=== PATIENT | male | born 1975 | race Caucasian/White ===

== ENCOUNTER 2018-08-20 08:10 | Observation (INO) ==
[2018-08-20] MEDS ORDERED: ONDANSETRON 4 MG/2 ML VIAL IV ONE (08:16)
[2018-08-20] MEDS ORDERED: 0.9 % SODIUM CHLORIDE 1,000 ML IV ONE ×3 (08:22→12:11)
--- NOTE | 2018-08-20 08:42 | Emergency Department Note ---
Overdose HPI - General Chief Complaint: Overdose Stated Complaint: Weak, took a lot of anxiety meds Time Seen by Provider: 08/20/18 08:33 Source: EMS Mode of arrival: EMS - History of Present Illness HPI Narrative: Dr. Silvio Nunes called me at 8:19 AM to report that this patient was being transported here. Apparently a family member learned of him taking up to [address] Nunes is concerned about this patient's long- standing history of substance abuse (alcohol) and other psych concerns, possible schizoaffective, etc. He is recommending trying to get patient into a long-term inpatient detox. He also recommends consulting with Dr. Bundy, addiction ologist, who has also seen patient in the past I believe. We also received a note that she wishes an update on this patient. Patient reports that he has fallen a few times last evening. He thinks he took the pills around 10:30 PM at least it was before midnight. He did not add any alcohol at this time. He believes he was going through withdrawals from alcohol and was taking these medicines to help alleviate that or to get a buzz. He reports that his heart rate was fast last evening. He also reports nausea and that he vomited 4 times this morning but was not sweaty. He did have some letitia mors. He reports now still being nauseated and sleepy. No previous suicide attempts with pills. He does admit to suicide attempt with excess alcohol with a blood level of 0.58 in the past. He feels numb all over. He reports seeing some hallucination or abnormalities such as looking at a white wall and seeing some yellow in front of it and lights that look like footballs. Please officer reports that he has a history of hallucinations and shooting up the apartment where he lives. Patient reports that he currently lives with his mother in her home. He is accepted at or headed towards living in a residential house, the [facility]. REVIEW OF SYSTEMS: Denies fever, chills, sweats other than above. Denies chest pain, shortness of breath, diarrhea, hematochezia. He has some chronic constipation. He admits to some depression and posttraumatic stress disorders problems. - Related Data Home Medications Medication Instructions Recorded Confirmed vitamin B complex tablet 1 tab PO QDAY 05/14/17 08/16/18 naltrexone ER 380 mg intramuscular 380 mg IM QMONTH 08/11/18 08/16/18 suspension,extended release Previous Rx's Medication Instructions Recorded multivitamin tablet 1 tab PO QDAY #60 tab 12/31/17 thiamine HCl (vitamin B1) 100 mg 100 mg PO QDAY #90 tab 06/29/18 tablet bupropion HCl 100 mg tablet 100 mg PO QHS #90 tab 07/27/18 quetiapine 100 mg tablet 200 mg PO QHS #135 tab 07/27/18 baclofen 10 mg tablet 10 mg PO TID #30 tab 08/11/18 hydroxyzine HCl 50 mg tablet 50 mg PO QHS #90 tab 08/11/18 mirtazapine 15 mg tablet 15 mg PO QHS #14 tab 08/11/18 lamotrigine 25 mg tablet 25 mg PO BID #30 tab 08/16/18 metoprolol tartrate 25 mg tablet 25 mg PO BID #90 tab 08/16/18 Allergies Allergy/AdvReac Type Severity Reaction Status Date / Time disulfiram AdvReac Rash Verified 08/20/18 08:11 Past Medical History - Past Medical History [facility] Narrative: Medical History (Last Updated 08/20/18 @ 09:15 by Arben Em DO) Alcohol abuse (Chronic) Schizoaffective disorder (Suspected) Hypertension, essential (Chronic) Substance Abuse (Chronic) Alcohol intoxication with moderate or severe use disorder (Resolved) History of tobacco use (Chronic) Insomnia (Chronic) Depression (Chronic) Anxiety (Chronic) Post traumatic stress disorder (PTSD) (Chronic) Past Surgical History (Last Reviewed 07/30/18 @ 08:28 by Vianney Woodson LPN) No pertinent past surgical history (Chronic) Family History (Last Reviewed 07/30/18 @ 08:28 by Vianney Woodson LPN) Father Hypertension, essential Alcohol abuse Grandmother Hypertension, essential Alcohol abuse Mother Alcohol abuse Family/Other Alcohol abuse Family/Other Alcohol abuse Medical history: Reports: hypertension. Denies: DVT, pulmonary embolus Psychiatric history: Reports: anxiety, depression, PTSD. Denies: bipolar - Social History smoking status: Current every day smoker Physical Exam Limitations: altered mental status (Primarily sleepiness and some slowed response.) General appearance: alert (When spoken to but easily falls back asleep.), ap pears intoxicated, in no apparent distress, sleepy Head: atraumatic, normocephalic Eye: Present: PERRL, EOMI. Absent: scleral icterus, conjunctival injection ENT: normal oropharynx, mucous membranes dry Neck: Present: trachea midline. Absent: lymphadenopathy, thyromegaly Chest: Present: symmetric chest wall rise Respiratory: Present: normal lung sounds bilaterally. Absent: respiratory distress, wheezes, stridor, accessory muscle use, prolonged expiratory phase Cardiovascular: Present: regular rate, normal rhythm. Absent: systolic murmur, diastolic murmur Abdominal: Present: soft. Absent: distention, tenderness, guarding, rebound, rigidity, organomegaly, mass Extremities: Absent: pedal edema, pretibial edema, calf tenderness Back: Absent: tenderness Neurological: Present: alert, oriented X3 Psychiatric: Present: serious. Absent: depressed, agitated, anxious, homicidal ideation, suicidal ideation, tearful, poor eye contact Skin: Present: warm, dry Course Vital Signs Temperature 97.9 F 08/20/18 08:11 Pulse Rate 75 08/20/18 08:11 Respiratory Rate 20 08/20/18 08:11 Blood Pressure 166/112 08/20/18 08:11 Pulse Oximetry (%) 90 08/20/18 08:11 Temperature 97.9 F 08/20/18 08:11 Pulse Rate 75 08/20/18 08:52 Respiratory Rate 18 08/20/18 08:52 Blood Pressure 172/118 08/20/18 08:46 Pulse Oximetry (%) 94 08/20/18 08:52 Overdose - Lab Data Result diagrams: 08/20/18 08:43 08/20/18 08:43 Lab Results 08/20/18 Range/Units 08:43 WBC 5.9 (4.5-11.0) K/mcL RBC 4.55 (4.50-5.90) M/mcL Hgb 13.7 (13.5-16.5) g/dL Hct 41.3 (41.0-55.0) % MCV 90.8 (80.0-100.0) fL MCH 30.1 (26.0-34.0) pg MCHC 33.1 (31.0-36.0) g/dL RDW 17.5 H (11.5-14.5) % Plt Count 104 L (140-440) K/mcL MPV 8.1 (7.4-10.4) fL Gran % 66.1 (38.0-78.0) % Lymph % (Auto) 22.0 (15.5-49.0) % [place] % (Auto) 8.5 (1.0-12.0) % Eos % (Auto) 2.9 (0.0-7.0) % Baso % (Auto) 0.5 (0.0-2.0) % Gran # 3.9 (1.8-8.0) K/mcL Lymph # (Auto) 1.3 L (1.5-4.8) K/mcL [place] # (Auto) 0.5 (0.1-0.9) K/mcL Eos # (Auto) 0.2 (0.0-0.7) K/mcL Baso # (Auto) 0 (0.0-0.3) K/mcL Disposition Pt seen by USER EXPERIENCE DESIGNER/PA only: No Clinical Impression: Alcohol abuse, Hypertension, essential, Multiple falls Drug overdose Qualifiers: Encounter type: initial encounter Injury intent: undetermined intent Qualified Code(s): T50.904A - Poisoning by unspecified drugs, medicaments and biological substances, undetermined, initial encounter Summary: Patient arrived shortly before change in shift. Patient's care will be transferred to Dr. Liao for final disposition. Note that Poison Control was consulted, with recommendation to give a an amp of sodium bicarb if he has prolonged QT changes which are somewhat borderline. Dr. Liao and I briefly discussed this with conclusion to go ahead and give this amp of bicarb. Also they recommended benzodiazepines if needed to help with any seizure activity because of the excess of Wellbutrin. Because of his alcohol withdrawal considerations 1 mg of lorazepam also ordered; may need more than this. CT scan of the head was ordered because of patient's multiple falls and somewhat obtunded and uncertain accuracy of some of his statements or history. Disposition: Still a Patient Referrals: Silvio Silverio MD [Primary Care Provider] -
[2018-08-20] MEDS ORDERED: LORazepam 2 MG/ML VIAL IV ONE ×2 (09:00→11:00)
[2018-08-20] MEDS ORDERED: SODIUM BICARBONATE ADULT 50 MEQ/50 ML SYRINGE IV ONE (09:03)
[2018-08-20 09:10] LABS: Basophils # (Auto) 0 K/mcL (0.0-0.3); Basophils % (Auto) 0.5 % (0.0-2.0); Eosinophils # (Auto) 0.2 K/mcL (0.0-0.7); Eosinophils % (Auto) 2.9 % (0.0-7.0); Granulocytes % (Auto) 66.1 % (38.0-78.0); Hematocrit 41.3 % (41.0-55.0); Hemoglobin 13.7 g/dL (13.5-16.5); Lymphocytes # (Auto) 1.3 K/mcL (1.5-4.8); Mean Cell Volume 90.8 fL (80.0-100.0); Mean Corpuscular HGB Conc 33.1 g/dL (31.0-36.0); Mean Platelet Volume 8.1 fL (7.4-10.4); Monocytes # (Auto) 0.5 K/mcL (0.1-0.9); Monocytes % (Auto) 8.5 % (1.0-12.0); Platelet Count 104 K/mcL (140-440); RBC 4.55 M/mcL (4.50-5.90); Red Cell Distribution Width 17.5 % (11.5-14.5); WBC 5.9 K/mcL (4.5-11.0)
[2018-08-20] MEDS ORDERED: SODIUM BICARBONATE 50 MEQ/50 ML VIAL IV ONE (09:13)
[2018-08-20 09:29] LABS: Alcohol, Blood < 10.0 mg/dL (<10); Alcohol,Blood < 0.010 gm/dl (<0.010)
[2018-08-20 09:34] LABS: ALT/SGPT 50 U/l (0-40); AST/SGOT 41 U/l (0-37); Albumin 4.2 gm/dL (3.2-5.2); Albumin/Globulin Ratio 1.3 (1.0-2.3); Alkaline Phosphatase 86 U/L (39-117); Bilirubin,Total 0.6 mg/dL (0.0-1.0); Blood Urea Nitrogen 17 mg/dl (6-20); Calcium 8.9 mg/dl (8.6-10.4); Carbon Dioxide 23 mmol/L (22-30); Chloride 101 mmol/L (96-108); Globulin 3.2 gm/dL (2.2-3.7); Glomerular Filtration Rate 117; Glucose 136 mg/dL (70-105); Sodium 136 mmol/L (133-145)
--- NOTE | 2018-08-20 09:51 | Cat Scan Report ---
CLINICAL INFORMATION: Frequent falls. COMPARISON: None. TECHNIQUE: Axial noncontrast-enhanced images through the brain. Sagittal and coronal reformatted images FINDINGS: No acute intracranial hemorrhage. No subdural hematoma. There is no subarachnoid hemorrhage. Basilar cisterns are normal. No intra-axial hemorrhage. No focal intra-axial attenuation abnormalities. No localized mass effect. No midline shift. Brain volume is within normal limits. Brainstem and cerebellum are negative. There are no calvarial fractures. Temporal bones are negative. No basilar skull fracture. IMPRESSION: Negative noncontrast enhanced brain CT scan The exam was performed using radiation dose optimization techniques including, but not limited to, automated exposure control, adjustment of the mA and/or kV according to patient size and use of iterative reconstruction technique. Interpreted and Authenticated by: Jorje Sage 08/20/18
--- NOTE | 2018-08-20 10:16 | Emergency Department Note ---
Overdose HPI - General Chief Complaint: Overdose Stated Complaint: Weak, took a lot of anxiety meds Time Seen by Provider: 08/20/18 08:33 Source: EMS Mode of arrival: EMS Limitations: altered mental status (Primarily sleepiness and some slowed response.) - Related Data Home Medications Medication Instructions Recorded Confirmed vitamin B complex tablet 1 tab PO QDAY 05/14/17 08/16/18 naltrexone ER 380 mg intramuscular 380 mg IM QMONTH 08/11/18 08/16/18 suspension,extended release Previous Rx's Medication Instructions Recorded multivitamin tablet 1 tab PO QDAY #60 tab 12/31/17 thiamine HCl (vitamin B1) 100 mg 100 mg PO QDAY #90 tab 06/29/18 tablet bupropion HCl 100 mg tablet 100 mg PO QHS #90 tab 07/27/18 quetiapine 100 mg tablet 200 mg PO QHS #135 tab 07/27/18 baclofen 10 mg tablet 10 mg PO TID #30 tab 08/11/18 hydroxyzine HCl 50 mg tablet 50 mg PO QHS #90 tab 08/11/18 mirtazapine 15 mg tablet 15 mg PO QHS #14 tab 08/11/18 lamotrigine 25 mg tablet 25 mg PO BID #30 tab 08/16/18 metoprolol tartrate 25 mg tablet 25 mg PO BID #90 tab 08/16/18 Allergies Allergy/AdvReac Type Severity Reaction Status Date / Time disulfiram AdvReac Rash Verified 08/20/18 08:11 Past Medical History - Past Medical History Medical history: Reports: hypertension. Denies: DVT, pulmonary embolus Psychiatric history: Reports: anxiety, depression, PTSD. Denies: bipolar - Social History smoking status: Current every day smoker Physical Exam I reassessed this patient as he was now requiring oxygen since being checked out to me by Dr. Em. He is mildly diaphoretic but able to answer questions. Moist mucous membranes. Belly is mildly diffuse tender Limitations: altered mental status (Primarily sleepiness and some slowed response.) General appearance: alert (When spoken to but easily falls back asleep.), appears intoxicated, in no apparent distress, sleepy Course Vital Signs Temperature 97.9 F 08/20/18 08:11 Pulse Rate 75 08/20/18 08:11 Respiratory Rate 20 08/20/18 08:11 Blood Pressure 166/112 08/20/18 08:11 Pulse Oximetry (%) 90 08/20/18 08:11 Temperature 97.9 F 08/20/18 08:11 Pulse Rate 84 08/20/18 13:22 Respiratory Rate 16 08/20/18 13:22 Blood Pressure 147/103 08/20/18 13:21 Pulse Oximetry (%) 97 08/20/18 13:22 Overdose - Lab Data Lab results reviewed: Yes I reviewed the patient's lab results. Result diagrams: 08/20/18 08:43 08/20/18 08:43 Lab Results 08/20/18 08/20/18 08/20/18 Range/Units 08:23 08:41 08:43 WBC 5.9 (4.5-11.0) K/mcL RBC 4.55 (4.50-5.90) M/mcL Hgb 13.7 (13.5-16.5) g/dL Hct 41.3 (41.0-55.0) % MCV 90.8 (80.0-100.0) fL MCH 30.1 (26.0-34.0) pg MCHC 33.1 (31.0-36.0) g/dL RDW 17.5 H (11.5-14.5) % Plt Count 104 L (140-440) K/mcL MPV 8.1 (7.4-10.4) fL Gran % 66.1 (38.0-78.0) % Lymph % (Auto) 22.0 (15.5-49.0) % [place] % (Auto) 8.5 (1.0-12.0) % Eos % (Auto) 2.9 (0.0-7.0) % Baso % (Auto) 0.5 (0.0-2.0) % Gran # 3.9 (1.8-8.0) K/mcL Lymph # (Auto) 1.3 L (1.5-4.8) K/mcL [place] # (Auto) 0.5 (0.1-0.9) K/mcL Eos # (Auto) 0.2 (0.0-0.7) K/mcL Baso # (Auto) 0 (0.0-0.3) K/mcL VBG Lactic Acid (0.5-2.0) mmol/L Sodium (133-145) mmol/L Potassium (3.3-5.1) mmol/L Chloride (96-108) mmol/L Carbon Dioxide (22-30) mmol/L Anion Gap (8-16) BUN (6-20) mg/dl Creatinine (0.7-1.2) mg/dl GFR Calculation Glucose (70-105) mg/dL Calcium (8.6-10.4) mg/dl Magnesium (1.6-2.5) mg/dL Total Bilirubin (0.0-1.0) mg/dL AST (0-37) U/l ALT (0-40) U/l Alkaline Phosphatase (39-117) U/L Total Protein (5.9-8.4) gm/dL Albumin (3.2-5.2) gm/dL Globulin (2.2-3.7) gm/dL Albumin/Globulin Ratio (1.0-2.3) Salicylates mg/dL Urine Opiates Screen (NONDETECTED) Ur Oxycodone Screen (NONDETECTED) Urine Methadone Screen (NONDETECTED) Acetaminophen < 5.0 ug/mL Ur Barbiturates Screen (NONDETECTED) Ur Phencyclidine Scrn (NONDETECTED) Ur Amphetamines Screen (NONDETECTED) U Benzodiazepines Scrn (NONDETECTED) Urine Cocaine Screen (NONDETECTED) U Marijuana (THC) Screen (NONDETECTED) Ethyl Alcohol < 0.010 (<0.010) gm/dl 08/20/18 08/20/18 08/20/18 Range/Units 08:43 08:44 08:52 WBC (4.5-11.0) K/mcL RBC (4.50-5.90) M/mcL Hgb (13.5-16.5) g/dL Hct (41.0-55.0) % MCV (80.0-100.0) fL MCH (26.0-34.0) pg MCHC (31.0-36.0) g/dL RDW (11.5-14.5) % Plt Count (140-440) K/mcL MPV (7.4-10.4) fL Gran % (38.0-78.0) % Lymph % (Auto) (15.5-49.0) % [place] % (Auto) (1.0-12.0) % Eos % (Auto) (0.0-7.0) % Baso % (Auto) (0.0-2.0) % Gran # (1.8-8.0) K/mcL Lymph # (Auto) (1.5-4.8) K/mcL [place] # (Auto) (0.1-0.9) K/mcL Eos # (Auto) (0.0-0.7) K/mcL Baso # (Auto) (0.0-0.3) K/mcL VBG Lactic Acid (0.5-2.0) mmol/L Sodium 136 (133-145) mmol/L Potassium 4.0 (3.3-5.1) mmol/L Chloride 101 (96-108) mmol/L Carbon Dioxide 23 (22-30) mmol/L Anion Gap 12.0 (8-16) BUN 17 (6-20) mg/dl Creatinine 0.7 (0.7-1.2) mg/dl GFR Calculation 117 Glucose 136 H (70-105) mg/dL Calcium 8.9 (8.6-10.4) mg/dl Magnesium 2.0 (1.6-2.5) mg/dL Total Bilirubin 0.6 (0.0-1.0) mg/dL AST 41 H (0-37) U/l ALT 50 H (0-40) U/l Alkaline Phosphatase 86 (39-117) U/L Total Protein 7.4 (5.9-8.4) gm/dL Albumin 4.2 (3.2-5.2) gm/dL Globulin 3.2 (2.2-3.7) gm/dL Albumin/Globulin Ratio 1.3 (1.0-2.3) Salicylates < 0.3 mg/dL Urine Opiates Screen (NONDETECTED) Ur Oxycodone Screen (NONDETECTED) Urine Methadone Screen (NONDETECTED) Acetaminophen ug/mL Ur Barbiturates Screen (NONDETECTED) Ur Phencyclidine Scrn (NONDETECTED) Ur Amphetamines Screen (NONDETECTED) U Benzodiazepines Scrn (NONDETECTED) Urine Cocaine Screen (NONDETECTED) U Marijuana (THC) Screen (NONDETECTED) Ethyl Alcohol (<0.010) gm/dl 08/20/18 08/20/18 Range/Units 10:38 11:25 WBC (4.5-11.0) K/mcL RBC (4.50-5.90) M/mcL Hgb (13.5-16.5) g/dL Hct (41.0-55.0) % MCV (80.0-100.0) fL MCH (26.0-34.0) pg MCHC (31.0-36.0) g/dL RDW (11.5-14.5) % Plt Count (140-440) K/mcL MPV (7.4-10.4) fL Gran % (38.0-78.0) % Lymph % (Auto) (15.5-49.0) % [place] % (Auto) (1.0-12.0) % Eos % (Auto) (0.0-7.0) % Baso % (Auto) (0.0-2.0) % Gran # (1.8-8.0) K/mcL Lymph # (Auto) (1.5-4.8) K/mcL [place] # (Auto) (0.1-0.9) K/mcL Eos # (Auto) (0.0-0.7) K/mcL Baso # (Auto) (0.0-0.3) K/mcL VBG Lactic Acid 1.5 (0.5-2.0) mmol/L Sodium (133-145) mmol/L Potassium (3.3-5.1) mmol/L Chloride (96-108) mmol/L Carbon Dioxide (22-30) mmol/L Anion Gap (8-16) BUN (6-20) mg/dl Creatinine (0.7-1.2) mg/dl GFR Calculation Glucose (70-105) mg/dL Calcium (8.6-10.4) mg/dl Magnesium (1.6-2.5) mg/dL Total Bilirubin (0.0-1.0) mg/dL AST (0-37) U/l ALT (0-40) U/l Alkaline Phosphatase (39-117) U/L Total Protein (5.9-8.4) gm/dL Albumin (3.2-5.2) gm/dL Globulin (2.2-3.7) gm/dL Albumin/Globulin Ratio (1.0-2.3) Salicylates mg/dL Urine Opiates Screen None detected (NONDETECTED) Ur Oxycodone Screen None detected (NONDETECTED) Urine Methadone Screen None detected (NONDETECTED) Acetaminophen ug/mL Ur Barbiturates Screen None detected (NONDETECTED) Ur Phencyclidine Scrn None detected (NONDETECTED) Ur Amphetamines Screen None detected (NONDETECTED) U Benzodiazepines Scrn None detected (NONDETECTED) Urine Cocaine Screen None detected (NONDETECTED) U Marijuana (THC) Screen None detected (NONDETECTED) Ethyl Alcohol (<0.010) gm/dl Arterial blood gas shows pH of 7.41 PCO2 39 PO2 72- this was on 3 L oxygen Urinalysis [id number] dipstick shows normal urine with specific gravity 1.010 Repeat blood gas showed pH of 7.40 PCO2 38 PO2 of 86 still on 3 L - Radiology Data Radiology results reviewed: Yes I reviewed the patient's radiology results. CT scan of the head shows no acute findings Chest x-ray shows no cause for his shortness of breath - EKG Data EKG attestation: Yes I reviewed and interpreted this EKG. EKG results narrative: See Dr. Em's note for first EKG Second EKG continues to show borderline long [place] and QT with a rate of 80 Disposition Pt seen by RUG UNDERLAY MACHINE OPERATOR/PA only: No Clinical Impression: Alcohol abuse, Hypertension, essential, Multiple falls Drug overdose Qualifiers: Encounter type: initial encounter Injury intent: undetermined intent Qualified Code(s): T50.904A - Poisoning by unspecified drugs, medicaments and biological substances, undetermined, initial encounter Suicide attempt by multiple drug overdose Qualifiers: Encounter type: initial encounter Qualified Code(s): T50.902A - Poisoning by unspecified drugs, medicaments and biological substances, intentional self-harm, initial encounter Summary: Received patient from checkout from Dr. Em. Laboratory work-up is relatively benign but clinically he is pale diaphoretic and short of breath. Chest x-ray is unrevealing. CT scan of the head is negative. Requiring oxygen at this point so medically unstable. Some labs stil l pending. ABG is not remarkable Given scenario and after discussion with poison control by nursing staff patient will have to be on a 24-hour medical hold. Likely he will have to come in the hospital for stabilization Repeat EKG showed again borderline long QT and [place] so we will check another ABG with possibly giving another amp of bicarb. Given 10 mg of hydralazine for high blood pressure Poison control called back to check on the patient-continue current care which includes Ativan for withdrawal symptoms, hydralazine for blood control, serial EKGs and bicarb as needed. Will need to be monitored for the next 24 hours to be medically stable for further intervention He [facility] I discussed the situation with Dr. Garcia, our hospitalist who agreed to accept the patient for further care and evaluation in the hospital Disposition: Xfer As Inpt ([facility]) Condition: Critical Referrals: Silvio Silverio MD [Primary Care Provider] -
--- NOTE | 2018-08-20 11:27 | XRay Report ---
INDICATION: Drug overdose TECHNIQUE: PA and lateral upright chest x-ray COMPARISON: Previous chest x-rays dated 02/27/2017 and 02/18/2012 FINDINGS:No acute or focal pulmonary parenchymal infiltrate. No pulmonary parenchymal mass. Heart size and vascularity are within normal limits. There is no pulmonary congestion or pulmonary edema. No focal pulmonary parenchymal consolidation. No acute infiltrate. [place] and mediastinum are negative Probable old right eighth rib fracture. No thoracic compression fractures. IMPRESSION: No acute or focal abnormality. No interval change since 02/27/2017 Interpreted and Authenticated by: Jorje Sage 08/20/18
[2018-08-20 11:41] LABS: Amphetamine Screen,Urine NONE DETECTED (NONDETECTED); Barbiturate Screen,Urine NONE DETECTED (NONDETECTED); Benzodiazepines Screen,Urine NONE DETECTED (NONDETECTED); Cannabinoid Screen,Urine NONE DETECTED (NONDETECTED); Cocaine Screen,Urine NONE DETECTED (NONDETECTED); Opiate Screen,Urine NONE DETECTED (NONDETECTED); Oxycodone, Urine Screen NONE DETECTED (NONDETECTED); Phencyclidine Screen,Urine NONE DETECTED (NONDETECTED)
[2018-08-20] MEDS ORDERED: hydrALAZINE 20 MG/ML VIAL IV ONE ×2 (12:21)
--- NOTE | 2018-08-20 13:59 | Internal Med History&Physical ---
Medical - H&P: HPI Patient information: Note initiated : 08/20/18 at 1:56 pm Service Date, if different from initiated Date: [] Patient: Isreal Pena a 42 y/o M admitted on for Weak, Took A Lot Of Anxiety Meds. Chief Complaint: [] History of present illness: Mr. Pena is a 42 year old M with history of alcohol abuse, she is affective disorder, posttraumatic stress syndrome, presents to the emergency room brought in by his mother for weakness. The patient around midnight yesterday took 35 pills of Wellbutrin, looking at his prescription it seems they 100 mg pills, he also took 2 Seroquel pills and the rest of his regular home medications. The patient is drowsy and confused and is unable to verbalize clearly why he decided to take those pills. There is mention that he feels suicidal when he drinks, however he reports that his last drink was 4 to 5 days ago, he did not drink yesterday. He has been followed by the petroleum supply specialist in the clinic. This morning the patient noticed he was very weak, and all 4 limbs unable to ambulate well had to crawl to the bathroom and therefore his mother brought him to the hospital for further evaluation. The patient complains about dryness of mouth, and had significant palpitations overnight. He denies any headache changes in vision difficulty in swallowing chest pain shortness of breath nausea vomiting cough or any other acute complaint at this t paula. He did receive some Ativan, and it seems that he is finding it difficult to find right words. In the emergency room patient on presentation was afebrile and hemodynamically stable. Labs show W BC count of 5.9 platelets 104 hemoglobin 13.7 salicylate less than 0.3 acetaminophen undetectable alcohol level negative lactic acid 1.5 urine drug screen negative electrolytes are stable normal creatinine 0.7 glucose 136 magnesium 2.0 AST 41 ALT 50 alk phos 86 Pleasant control was called in the emergency room they advised the patient to be monitored for QT prolongation, patient did have mild QT prolongation on the EKG and a bicarb was given. ABG was done which shows pH of 7.40 PCO2 of 38 PO2 of 86. Patient is being admitted to the hospital for observation for bupropion overdose, I have consulted Dr. Lowe to help manage the patient's behavioral issue as well as addiction issues. [facility] will evaluate the patient from the safety perspective, patient will be kept in a suicide watch until cleared by [facility] All systems: reviewed and no additional remarkable complaints except as stated (As per HPI rest negative) Medical - H&P: [facility] Medical history: Medical History (Last Updated 08/20/18 @ 09:15 by Arben Em DO) Alcohol abuse (Chronic) Schizoaffective disorder (Suspected) Hypertension, essential (Chronic) Substance Abuse (Chronic) Alcohol intoxication with moderate or severe use disorder (Resolved) History of tobacco use (Chronic) Insomnia (Chronic) Depression (Chronic) Anxiety (Chronic) Post traumatic stress disorder (PTSD) (Chronic) Surgical history: Past Surgical History (Last Reviewed 07/30/18 @ 08:28 by Vianney Woodson LPN) No pertinent past surgical history (Chronic) Pertinent family history: Family History (Last Reviewed 07/30/18 @ 08:28 by Vianney Woodson LPN) Father Hypertension, essential Alcohol abuse Grandmother Hypertension, essential Alcohol abuse Mother Alcohol abuse Family/Other Alcohol abuse Family/Other Alcohol abuse Medical - H&P: Meds Home Medications Medication Instructions Recorded Confirmed Type vitamin B complex tablet 1 tab PO QDAY 05/14/17 08/16/18 History multivitamin tablet 1 tab PO QDAY #60 tab 12/31/17 08/16/18 Rx thiamine HCl (vitamin B1) 100 mg 100 mg PO QDAY #90 tab 06/29/18 08/16/18 Rx tablet bupropion HCl 100 mg tablet 100 mg PO QHS #90 tab 07/27/18 08/16/18 Rx quetiapine 100 mg tablet 200 mg PO QHS #135 tab 07/27/18 08/16/18 Rx baclofen 10 mg tablet 10 mg PO TID #30 tab 08/11/18 08/16/18 Rx hydroxyzine HCl 50 mg tablet 50 mg PO QHS #90 tab 08/11/18 08/16/18 Rx mirtazapine 15 mg tablet 15 mg PO QHS #14 tab 08/11/18 08/16/18 Rx naltrexone ER 380 mg intramuscular 380 mg IM QMONTH 08/11/18 08/16/18 History suspension,extended release lamotrigine 25 mg tablet 25 mg PO BID #30 tab 08/16/18 08/16/18 Rx metoprolol tartrate 25 mg tablet 25 mg PO BID #90 tab 08/16/18 08/16/18 Rx Allergies Allergy/AdvReac Type Severity Reaction Status Date / Time disulfiram AdvReac Rash Verified 08/20/18 08:11 Medical - H&P: Exam - Constitutional Vitals: Temp Pulse Resp BP Pulse Ox 97.9 F 83 19 147/103 93 08/20/18 08:11 08/20/18 13:51 08/20/18 13:51 08/20/18 13:21 08/20/18 13:51 Exam: GENERAL: The patient is a well-developed, well-nourished in no apparent di stress. Is drowsy and oriented x3. VITAL SIGNS: Reviewed and as noted elsewhere. HEENT: Head is normocephalic and atraumatic. Extraocular muscles are intact. Pupils are equal, round, and reactive to light. Nares appeared normal. Mouth appears any without lesions. Mucous membranes are dry. NECK: Normal to inspection, Supple, No lymphadenopathy or thyromegaly. LUNGS: Air entry equal on both sides, no wheezing, crackles or rhonchi noted. No accessory muscles of respiration HEART: Regular rate and rhythm normal, S1 and S2 heard, no Gallop, S3 or Rub Noted, No Gross murmur heard. ABDOMEN: Soft, nontender, and nondistended. Positive bowel sounds. No hepatosplenomegaly was noted. EXTREMITIES: No cyanosis, clubbing, rash, lesions or edema. NEUROLOGIC: Cranial nerves II through XII are grossly intact. Motor and Sensory System Grossly Intact, strength 5/5 in all 4 limbs PSYCHIATRIC: mildly agitated, confused SKIN: No ulceration or wounds noted, No jaundice, No rash noted. Medical - H&P: Reslt - Labs CBC & Chem 7: 08/20/18 08:43 08/20/18 08:43 Labs: Short CBC 08/20/18 Range/Units 08:43 WBC 5.9 (4.5-11.0) K/mcL Hgb 13.7 (13.5-16.5) g/dL Hct 41.3 (41.0-55.0) % Plt Count 104 L (140-440) K/mcL BMP 08/20/18 08:43 Sodium 136 Potassium 4.0 Chloride 101 Carbon Dioxide 23 BUN 17 Creatinine 0.7 Glucose 136 H Calcium 8.9 Liver Function 08/20/18 Range/Units 08:43 Total Bilirubin 0.6 (0.0-1.0) mg/dL AST 41 H (0-37) U/l ALT 50 H (0-40) U/l Alkaline Phosphatase 86 (39-117) U/L Albumin 4.2 (3.2-5.2) gm/dL Medical - H&P: A/P - Narrative A/P Narrative: A/P Wellbutyrin overdose - monitor on tele, watch QTC, will give bicarbonate as an infusion or bolus if QTC crosses 0.5 -Suicide watch, sitter by the bedside, quality behavioral to evaluate -IV fluids -seizure precautions -monitor bp, and heart rate -ativan prn for seizures, -Metoprolol if tachycarrythmia -check CK Psychiatry issues -Schizoaffective disorder, Depression,Anxiety -PTSD -hold home meds for now, resume once stable Alcohol abuse -on IM vivitrol -Dr Lowe consulted -THiamine tid, IV banana bag -last drink 5 days ago, not sure if present confusion is related to etoh withdrawal vs drug effect DVT hep sq Regular diet Full code Social History - Social History marital status: single - Tobacco smoking status: Current every day smoker - Tobacco Type tobacco type: cigarettes - Alcohol alcohol intake frequency: former alcohol drinker - Substance use substance use type: does not use
[2018-08-20] MEDS ORDERED: ACETAMINOPHEN 325 MG TABLET PO PRN (14:53)
[2018-08-20] MEDS ORDERED: ONDANSETRON 4 MG/2 ML VIAL IV PRN (14:53)
[2018-08-20] MEDS ORDERED: METOPROLOL TARTRATE 5 MG/5 ML VIAL IV PRN (14:53)
[2018-08-20] MEDS ORDERED: LORazepam 2 MG/ML VIAL IV PRN (14:53)
[2018-08-20] MEDS ORDERED: POTASSIUM CHLORIDE 20 MEQ, MAGNESIUM SULFATE 16.24 MEQ, THIAMINE 100 MG, MVI, ADULT NO.... IV SCH ×2 (14:53→15:00)
[2018-08-20] MEDS: 0.9 % SODIUM CHLORIDE 10 ML SYRINGE IV SCH ×2 (15:19→21:46)
[2018-08-20] MEDS: DEXTROSE 5%-1/2NS 1,000 ML IV SCH ×2 (15:19→21:44)
[2018-08-20] MEDS: THIAMINE 100 MG TABLET PO SCH ×2 (15:29→20:08)
--- NOTE | 2018-08-20 15:29 | Behavioral Health Consult ---
History of Present Illness Patient information: Note initiated : 08/20/18 at 3:15 pm Service Date, if different from initiated Date: [] Patient: Isreal Pena 42 y/o M admitted on 08/20/18 for Weak, Took A Lot Of Anxiety Meds. Chief Complaint: [] Requesting Physician: Kitty Garcia History of present illness: Patient is a 42 year old male who reports history of alcohol use since age 14. Patient reports he was introduced to alcohol by his father and his boss, and has been drinking 2-3 beers after which time he experienced immediate euphoria. By the time he was 19, he has increased his alcohol use since he has been working and the more money he made the more he reports he would drink. Reports consuming as many as 20 (12oz) beer on the weekend by the time he was 21 years old. Reports increased use of alcohol when he was 22. By 24, patient has incurred several DUIs and has been on parole but despite the legal consequences he continues to use alcohol. Patient states that once he starts drinking he is unable to control his use and drinks till complete inebriation or a blackout. Reports regular use of 2 (1/5) black velvet. Patient reports getting another DUI and being incarcerated. Additionally, reports that he has lost several jobs as well as went through a divorce as a result of alcohol use. Patient states that he has been in trouble with the law for the last 20 years secondary to alcohol use. Most recently patient has been sober for 8 months but relapsed. I've been seeing patient in an outpatient clinic. His last appointment has been 08/16, breathelyzer 0.0 at the time. Patient has been able to maintain sobriety for 10 days. Patient was planning on re-entering [facility] this week as he told me in the appointment on 08/16. Today, patient's mother says that patient was not forthcoming about it, and was not going to do that. He was rushed to ED this morning, after his mother discovered that he has taken 35 tabs of 100mg Bupropion. Patient denies suicidal attempt. He states "I dont know why I took them, I did not have alcohol." Patient was discovered in an altered mental state by his mother at 2 am but she reports waiting 4 hours prior to calling EMS, "I was offering him up to God." Review of System Constitutional: no anorexia, no chills, no fatigue, no fever(s), no frequent falls, no headache(s), no night sweats, no weakness, no weight gain, no weight loss Nose, mouth and throat: no abnormal hearing, no change in voice, no dental pain, no dizziness, no epistaxis, no headache(s), no hoarseness, no nasal congestion, no neck pain, no odynophagia, no sinus pain, no sore throat, no vertigo Cardiovascular: no chest pain, no diaphoresis, no dyspnea, no leg edema, no palpatations, no pedal edema, no syncope Respiratory: no cough, no dyspnea, no hemoptysis, no wheezing Gastrointestinal: no abdominal pain, no bloating, no change in bowel habits, no coffee ground emesis, no constipation, no diarrhea, no heartburn, no hematemesis, no hematochezia, no nausea, no vomiting Genitourinary: no dysuria, no flank pain, no urinary frequency Musculoskeletal: no abnormal gait, no arthralgias, no back pain, no joint swelling, no myalgias, no numbness, no radiating pain into limb, no stiffness Integumentary: no changing lesions, no erythema, no lesions, no photosensitivity, no rash, no sores, no swelling Neurological: behavioral changes, confusion, focal weakness, weakness, other visual disturbances, no abnormal gait, no abnormal hearing, no abnormal movements, no abnormal speech, no frequent falls, no headache(s), no memory loss, no numbness, no paresthesias, no syncope, no tremor(s), no vertigo Psychiatric: confusion, hallucinations (visual), no abnormal sleep pattern, no anxiety, no auditory hallucinations, no change in appetite, no depression, no homicidal ideation, no memory loss, no suicidal ideation, no visual hallucinations, no tactile Endocrine: no cold intolerance, no polydipsia, no polyphagia Hematologic/Lymphatic: no easy bleeding, no easy bruising, no lymphadenopathy Allergic/Immunologic: no tongue swelling, no throat swelling, no lip swelling Past History Past medical history: Medical History (Last Updated 08/20/18 @ 09:15 by Arben Em DO) Alcohol abuse (Chronic) Schizoaffective disorder (Suspected) Hypertension, essential (Chronic) Substance Abuse (Chronic) Alcohol intoxication with moderate or severe use disorder (Resolved) History of tobacco use (Chronic) Insomnia (Chronic) Depression (Chronic) Anxiety (Chronic) Post traumatic stress disorder (PTSD) (Chronic) Past surgical history: Past Surgical History (Last Reviewed 07/30/18 @ 08:28 by Vianney Woodson LPN) No pertinent past surgical history (Chronic) Past family history: Family History (Last Reviewed 07/30/18 @ 08:28 by Vianney Woodson LPN) Father Hypertension, essential Alcohol abuse Grandmother Hypertension, essential Alcohol abuse Mother Alcohol abuse Family/Other Alcohol abuse Family/Other Alcohol abuse Past social history: Social History (Last Updated 08/16/18 @ 09:06 by Lauren Bundy DO) No Social History Section defined Medications and Allergies Home Medications Medication Instructions Recorded Confirmed Type multivitamin tablet 1 tab PO QDAY #60 tab 12/31/17 08/20/18 Rx bupropion HCl 100 mg tablet 100 mg PO QHS #90 tab 07/27/18 08/20/18 Rx quetiapine 100 mg tablet 200 mg PO QHS #135 tab 07/27/18 08/20/18 Rx baclofen 10 mg tablet 10 mg PO TID #30 tab 08/11/18 08/16/18 Rx hydroxyzine HCl 50 mg tablet 50 mg PO QHS #90 tab 08/11/18 08/16/18 Rx mirtazapine 15 mg tablet 15 mg PO QHS #14 tab 08/11/18 08/16/18 Rx naltrexone ER 380 mg intramuscular 380 mg IM QMONTH 08/11/18 08/20/18 History suspension,extended release lamotrigine 25 mg tablet 25 mg PO BID #30 tab 08/16/18 08/20/18 Rx Losartan [Cozaar] 50 mg PO ONCE 08/20/18 08/20/18 History Metoprolol Tartrate [Lopressor] 25 mg PO DAILY 08/20/18 08/20/18 History Thiamine HCl [Vitamin B-1] 100 mg PO DAILY 08/20/18 08/20/18 History Allergies Allergy/AdvReac Type Severity Reaction Status Date / Time disulfiram AdvReac Rash Verified 08/20/18 08:11 Physical Examination Vital signs: Temp Pulse Resp BP Pulse Ox 98.6 F 82 16 162/98 95 08/20/18 15:06 08/20/18 15:06 08/20/18 15:06 08/20/18 15:06 08/20/18 15:06 General appearance: alert (A&O 3), lethargic, appears uncomfortable Eyes pulmonary: nonicteric ENT: oropharynx moist Neck: supple, no lymphadenopathy, no JVD Effort: normal Auscultation: bilateral: clear Cardiovascular: regular rate and rhythm Gastrointestinal: normoactive bowel sounds, non-tender, non-distended Integumentary: normal Extremities: no cyanosis, no edema, pulses normal Musculoskeletal: no deformities, ROM normal Gait: normal gait pupils equal and round other (AMS) Results - Laboratory Findings CBC and BMP: 08/20/18 08:43 08/20/18 08:43 Abnormal lab findings: Abnormal Labs 08/20/18 08/20/18 08:43 08:43 RDW 17.5 H Plt Count 104 L Lymph # (Auto) 1.3 L Glucose 136 H AST 41 H ALT 50 H Alcohol Toxicology: ABG 08/20/18 08:23 Ethyl Alcohol < 0.010 Assessment and Plan (1) Drug overdose Status: Acute Qualifiers: Encounter type: initial encounter Injury intent: undetermined intent Qualified Code(s): T50.904A - Poisoning by unspecified drugs, medicaments and biological substances, undetermined, initial encounter (2) Alcohol use disorder Status: Acute - Narrative A/P Narrative: Patient has been sober from ETOH, will not be needing alcohol withdrawal treatment. Recommend d/c bupropion. Discussed with patient and his mother long-term RTC treatment, preferably patient to go right from the hospital, once he is safely discharged. Should patient be discharged prior to entering RTC treatment, recommend close f/u in out-patient clinic on Thursday
[2018-08-20] MEDS: HEPARIN 5,000 UNIT/ML VIAL SQ SCH (20:08)
[2018-08-20] MEDS: FAMOTIDINE 20 MG TABLET PO SCH (20:08)
[2018-08-20] MEDS ORDERED: METOPROLOL TARTRATE 50 MG TABLET ONE (20:40)
[2018-08-20] MEDS ORDERED: QUEtiapine 100 MG TABLET ONE (20:40)
[2018-08-20] MEDS ORDERED: QUEtiapine 100 MG TABLET PO SCH (21:00)
[2018-08-20] MEDS: BACLOFEN 10 MG TABLET PO SCH (21:08)
[2018-08-20] MEDS: lamoTRIgine 25 MG TABLET PO SCH (21:08)
[2018-08-20] MEDS: METOPROLOL TARTRATE 25 MG TABLET PO SCH (21:08)
[2018-08-21] MEDS: DEXTROSE 5%-1/2NS 1,000 ML IV SCH ×2 (05:05→11:25)
[2018-08-21] MEDS: 0.9 % SODIUM CHLORIDE 10 ML SYRINGE IV SCH ×2 (05:22→11:24)
[2018-08-21 05:33] LABS: Basophils # (Auto) 0 K/mcL (0.0-0.3); Basophils % (Auto) 0.5 % (0.0-2.0); Eosinophils # (Auto) 0.2 K/mcL (0.0-0.7); Eosinophils % (Auto) 3.9 % (0.0-7.0); Granulocytes % (Auto) 49.6 % (38.0-78.0); Hematocrit 37.5 % (41.0-55.0); Hemoglobin 12.6 g/dL (13.5-16.5); Lymphocytes # (Auto) 1.9 K/mcL (1.5-4.8); Lymphocytes % (Auto) 36.7 % (15.5-49.0); Mean Cell Volume 91.3 fL (80.0-100.0); Mean Corpuscular HGB Conc 33.7 g/dL (31.0-36.0); Mean Platelet Volume 8.7 fL (7.4-10.4); Monocytes # (Auto) 0.5 K/mcL (0.1-0.9); Monocytes % (Auto) 9.3 % (1.0-12.0); Platelet Count 82 K/mcL (140-440); RBC 4.11 M/mcL (4.50-5.90); Red Cell Distribution Width 18.6 % (11.5-14.5); WBC 5.3 K/mcL (4.5-11.0)
[2018-08-21 05:56] LABS: ALT/SGPT 37 U/l (0-40); AST/SGOT 31 U/l (0-37); Albumin 3.6 gm/dL (3.2-5.2); Albumin/Globulin Ratio 1.3 (1.0-2.3); Alkaline Phosphatase 91 U/L (39-117); Bilirubin,Direct < 0.2 mg/dL (0.0-0.3); Bilirubin,Total 0.3 mg/dL (0.0-1.0); Blood Urea Nitrogen 9 mg/dl (6-20); Calcium 8.3 mg/dl (8.6-10.4); Carbon Dioxide 21 mmol/L (22-30); Chloride 107 mmol/L (96-108); Globulin 2.7 gm/dL (2.2-3.7); Glomerular Filtration Rate 117; Glucose 113 mg/dL (70-105); Lactate Dehydrogenase 161 U/L (94-250); Magnesium 2.3 mg/dL (1.6-2.5); Phosphorous 1.8 mg/dL (2.7-4.5); Sodium 138 mmol/L (133-145); Triglycerides 355 mg/dl (<150); Uric Acid 3.8 mg/dL (2.5-8.0)
[2018-08-21] MEDS: METOPROLOL TARTRATE 25 MG TABLET PO SCH (07:56)
[2018-08-21] MEDS: HEPARIN 5,000 UNIT/ML VIAL SQ SCH ×2 (07:57→08:38)
[2018-08-21] MEDS: THIAMINE 100 MG TABLET PO SCH (08:35)
[2018-08-21] MEDS: BACLOFEN 10 MG TABLET PO SCH (08:35)
[2018-08-21] MEDS: lamoTRIgine 25 MG TABLET PO SCH (08:35)
[2018-08-21] MEDS: FAMOTIDINE 20 MG TABLET PO SCH (08:35)
--- NOTE | 2018-08-21 10:58 | Discharge Summary ---
Medical - DS: Prov Patient information: Note initiated : 08/21/18 at 10:54 am Service Date, if different from initiated Date: [] Patient: Isreal Pena 42 y/o M admitted on 08/20/18 for Weak, Took A Lot Of Anxiety Meds. Chief Complaint: [] Date of admission: 08/20/18 14:51 Discharge date: 08/21/18 Primary care physician: Silvio Silverio Consults: 08/20/18 Consult to Physician [CONS] Stat Comment: Consulting Provider: Kitty Garcia Reason For Exam: Physician to Consult 08/20/18 14:53 Consult to Physician [CONS] Stat Comment: Consulting Provider: Lauren Bundy Reason For Exam: Physician to Consult Discharging clinician: Kitty Garcia Medical - DS: Meds - Discharge Medications Active and Home Medications: Home Medications multivitamin tablet 1 tab PO QDAY #60 tab 12/31/17 [Rx Confirmed 08/20/18 Last Taken Unknown] bupropion HCl 100 mg tablet 100 mg PO QHS #90 tab 07/27/18 [Rx Confirmed 08/20/18 Last Taken 08/19/18] quetiapine 100 mg tablet 200 mg PO QHS #135 tab 07/27/18 [Rx Confirmed 08/20/18 Last Taken 08/19/18] baclofen 10 mg tablet 10 mg PO TID #30 tab 08/11/18 [Rx Confirmed 08/20/18 Last Taken 08/19/18] hydroxyzine HCl 50 mg tablet 50 mg PO QHS #90 tab 08/11/18 [Rx Confirmed 08/20/18 Last Taken 08/18/18] mirtazapine 15 mg tablet 15 mg PO QHS #14 tab 08/11/18 [Rx Confirmed 08/20/18 Last Taken Unknown] naltrexone ER 380 mg intramuscular suspension,extended release 380 mg IM QMONTH 08/11/18 [History Confirmed 08/20/18 Last Taken 07/26/18] lamotrigine 25 mg tablet 25 mg PO BID #30 tab 08/16/18 [Rx Confirmed 08/20/18 Last Taken Unknown] Metoprolol Tartrate [Lopressor] 50 mg PO DAILY 08/20/18 [History Confirmed 08/20/18 Last Taken 08/19/18] Thiamine HCl [Vitamin B-1] 100 mg PO DAILY 08/20/18 [History Confirmed 08/20/18 Last Taken Unknown] diphenhydrAMINE [Benadryl] 25 mg PO HSP PRN 08/20/18 [History Confirmed 08/20/18 Last Taken Unknown] Medical - DS: Hosp Hospital course: Mr. Pena is a 42 year old M with history of alcohol abuse, she is affective disorder, posttraumatic stress syndrome, presents to the emergency room brought in by his mother for weakness. The patient around midnight yesterday took 35 pills of Wellbutrin, looking at his prescription it seems they 100 mg pills, he also took 2 Seroquel pills and the rest of his regular home medications. The patient is drowsy and confused and is unable to verbalize clearly why he decided to take those pills. There is mention that he feels suicidal when he drinks, however he reports that his last drink was 4 to 5 days ago, he did not drink yesterday. He has been followed by the solution specialist in the clinic. This morning the patient noticed he was very weak, and all 4 limbs unable to ambulate well had to crawl to the bathroom and therefore his mother brought him to the hospital for further evaluation. The patient complains about dryness of mouth, and had significant palpitations overnight. He denies any headache changes in vision difficulty in swallowing chest pain shortness of breath nausea vomiting cough or any other acute complaint at this time. He did receive some Ativan, and it seems that he is finding it difficult to find right words. In the emergency room patient on presentation was afebrile and hemodynamically stable. Labs show W BC count of 5.9 platelets 104 hemoglobin 13.7 salicylate less than 0.3 acetaminophen undetectable alcohol level negative lactic acid 1.5 urine drug screen negative electrolytes are stable normal creatinine 0.7 glucose 136 magnesium 2.0 AST 41 ALT 50 alk phos 86 Pleasant control was called in the emergency room they advised the patient to be monitored for QT prolongation, patient did have mild QT prolongation on the EKG and a bicarb was given. ABG was done which shows pH of 7.40 PCO2 of 38 PO2 of 86. Patient is being admitted to the hospital for observation for bupropion overdose, I have consulted Dr. Lowe to help manage the patient's behavioral issue as well as addiction issues. [facility] will evaluate the patient from the safety perspective, patient will be kept in a suicide watch until cleared by [facility] Patient was admitted to the hospital for observation after overdose of Wellbutrin, patient remained stable no events on telemetry next morning patient was mentally clear, did not have any issues on telemetry. Evaluated by solution specialist who was not concerned about alcohol withdrawal, latisha evaluated the patient today and noted that the patient is not at risk of self- harm, or harm to others at this point. He does need to be available by phone for the crisis team to contact him. And needs to be with someone. He supposed to be followed up by his addiction team on Thursday morning, after which he will be transitioned to inpatient rehab Patient is medically stable for discharge, blood pressure is mildly elevated appears to be reactive in nature at this time, Discharge diagnosis: wellbutyrin overdose - Time Spent with Patient Total time spent providing and/or coordinating discharge services: Greater than 30 minutes Medical - DS: Exam - Constitutional Vitals: Vital Signs Temp Pulse Pulse Resp BP BP Pulse Ox 08/21/18 10:50 97.5 F 80 20 173/117 98 08/21/18 09:58 98.1 F 17 119/104 96 08/21/18 08:00 96 08/21/18 06:12 97.9 F 15 128/114 98 08/21/18 05:06 15 08/21/18 04:01 98.9 F 19 139/95 96 08/21/18 03:01 15 135/100 08/21/18 02:01 18 132/99 08/21/18 01:01 19 138/96 08/21/18 00:10 22 08/21/18 00:01 21 137/100 08/20/18 23:01 134/92 08/20/18 22:01 24 H 145/104 08/20/18 21:28 26 H 08/20/18 21:01 23 H 130/95 08/20/18 20:01 98.9 F 21 99 08/20/18 19:01 19 128/97 08/20/18 18:01 25 H 135/96 08/20/18 17:02 22 143/113 08/20/18 16:01 16 146/95 08/20/18 15:06 98.6 F 82 16 162/98 95 08/20/18 15:04 84 18 162/98 96 08/20/18 15:01 152/102 07/05/ 14:55 97.9 F 83 19 147/103 94 07/05/19 14:51 18 96 07/05/ 14:50 83 19 94 07/05/ 14:38 83 18 96 07/05/ 14:11 84 16 97 07/05/ 14:10 85 22 95 07/05/ 14:09 84 18 95 07/05/ 13:51 83 19 93 07/05/ 13:47 85 22 93 07/05/ 13:44 86 20 96 07/05/ 13:41 85 23 H 96 /05/ 13:40 85 26 H 97 /05/ 13:22 84 16 97 /05/ 13:21 84 18 147/103 98 /05 13:17 85 13 149/103 98 /05/ 13:12 84 17 97 /05/ 13:11 83 17 145/106 96 05 13:01 84 15 145/105 99 05 12:55 83 14 97 /05/ 12:51 83 21 148/99 97 05/ 12:41 83 16 145/98 97 /05/ 12:34 81 17 97 /05/ 12:31 83 15 163/107 96 05/ 12:21 81 17 159/111 96 /05/ 12:18 81 16 96 /05/ 12:13 80 16 95 /05/19 12:11 81 25 H 161/112 95 /05/19 12:10 80 17 95 /05/ 12:09 81 20 97 07/05/ 12:04 80 15 95 /05/ 12:02 80 17 95 /05/ 12:01 80 15 151/115 95 07/05/19 11:53 79 21 96 07/05/19 11:51 79 25 H 165/109 96 /05/ 11:46 79 14 96 07/05/ 11:45 81 19 160/110 96 /05/19 11:44 79 15 96 07/05/19 11:42 80 18 152/110 96 07/05/ 11:37 78 95 07/05/ 11:31 79 165/116 95 07/05/19 11:28 76 163/110 94 08/20/18 11:10 79 28 H 95 08/20/18 11:01 36 L 16 153/112 90 08/20/18 10:57 18 Intake and Output 08/20/18 08/21/18 08/21/18 21:59 05:59 13:59 Intake Total 1480 2325 Output Total 775 2250 700 Balance 705 75 -700 Intake: IV 1000 2025 Dextrose 5%-1/2Ns IV Solution 1 1000 1000 ,000 ml @ 150 mls/hr IV .[id number] [facility] Rx#:[id number] Oral 480 GI Tube Flush 300 Output: Void Amount 775 2250 700 Other: Meal Dinner Breakfast Percent of Meal Consumed 100% 100% Feeding Ability Independent Independent Urine Appearance Clear Clear Urine Color Pale Straw Weight 204 lb 12.8 oz Additional comments: Constitutional; Afebrile, cooperative, alert, not in distress. Eyes- No icterus, , No periorbital swelling Ears- Ext ear normal, hearing normal to conversation. Neck- Midline trachea, supple Respiratory system: Air Entry equal on both sides, No crackles or wheezing, no rhonchi. CVS- Rate rhythm regular, S1,S2 heard, no gallop, no rub. Abdomen- Soft nontender abdomen, no organomegaly, no tenderness, no guarding or rigidity, [employer]ER- AOOx3, moving all extremities, no gross focal deficit noted. Medical - DS: Data Labs on day of discharge: Labs from last 24 hours 08/21/18 08/21/18 08/20/18 04:08 04:08 11:25 WBC 5.3 RBC 4.11 L Hgb 12.6 L Hct 37.5 L MCV 91.3 MCH 30.8 MCHC 33.7 RDW 18.6 H Plt Count 82 L MPV 8.7 Gran % 49.6 Lymph % (Auto) 36.7 Whiteside % (Auto) 9.3 Eos % (Auto) 3.9 Baso % (Auto) 0.5 Gran # 2.6 Lymph # (Auto) 1.9 Whiteside # (Auto) 0.5 Eos # (Auto) 0.2 Baso # (Auto) 0 VBG Lactic Acid 1.5 Sodium 138 Potassium 4.0 Chloride 107 Carbon Dioxide 21 L Anion Gap 10.0 BUN 9 Creatinine 0.7 GFR Calculation 117 Glucose 113 H Uric Acid 3.8 Calcium 8.3 L Phosphorus 1.8 L Magnesium 2.3 Total Bilirubin 0.3 Direct Bilirubin < 0.2 GGT 216 H AST 31 ALT 37 Alkaline Phosphatase 91 Lactate Dehydrogenase 161 Total Creatine Kinase Total Protein 6.3 Albumin 3.6 Globulin 2.7 Albumin/Globulin Ratio 1.3 Triglycerides 355 H Urine Opiates Screen Ur Opiates Confirm Ur Oxycodone Screen Urine Methadone Screen Ur Methadone Confirm Ur Barbiturates Screen Ur Barbiturate Confirm Ur Phencyclidine Scrn Urine PCP Confirm Ur Amphetamines Screen U Amphetamines Confirm U Benzodiazepines Scrn U Benzodiazepine Confm Urine Cocaine Screen Urine Cocaine Confirm U Cannabinoids Confirm U Marijuana (THC) Screen 08/20/18 08/20/18 10:38 08:52 WBC RBC Hgb Hct MCV MCH MCHC RDW Plt Count MPV Gran % Lymph % (Auto) Whiteside % (Auto) Eos % (Auto) Baso % (Auto) Gran # Lymph # (Auto) Whiteside # (Auto) Eos # (Auto) Baso # (Auto) VBG Lactic Acid Sodium Potassium Chloride Carbon Dioxide Anion Gap BUN Creatinine GFR Calculation Glucose Uric Acid Calcium Phosphorus Magnesium Total Bilirubin Direct Bilirubin GGT AST ALT Alkaline Phosphatase Lactate Dehydrogenase Total Creatine Kinase 102 Total Protein Albumin Globulin Albumin/Globulin Ratio Triglycerides Urine Opiates Screen None detected Ur Opiates Confirm Not Reportable Ur Oxycodone Screen None detected Urine Methadone Screen None detected Ur Methadone Confirm Not Reportable Ur Barbiturates Screen None detected Ur Barbiturate Confirm Not Reportable Ur Phencyclidine Scrn None detected Urine PCP Confirm Not Reportable Ur Amphetamines Screen None detected U Amphetamines Confirm Not Reportable U Benzodiazepines Scrn None detected U Benzodiazepine Confm Not Reportable Urine Cocaine Screen None detected Urine Cocaine Confirm Not Reportable U Cannabinoids Confirm Not Reportable U Marijuana (THC) Screen None detected Medical - DS: A/P - Patient/Caregiver Discharge Instructions Activity: increase activity as tolerated Diet: Regular Diet, Low Sodium (2gm) Additional Instructions: Please make sure that you are with someone at all times, Try to attend AA meetings with someone Make sure all is available by phone for the crisis team to reach you Follow-up with the solution specialist on Thursday Go to the emergency room if you feel any desire to hurt yourself or anyone else. Please do not take Wellbutrin anymore, I have made no changes to your other chronic home medication list please take them as prescribed by her regular provider. - Follow up Plan Follow up with: Silvio Silverio MD [Primary Care Provider] - Disposition: Home, Self-Care Prognosis: Fair Rehab Potential: Fair I certify that the patient requires SNF services: No Overall status at discharge: patient is progressing back to baseline Medical - DS: Qual - VTE Deep Vein Thrombosis/Pulmonary Embolism Present on Admission: No
[2018-08-21] MEDS ORDERED: cloNIDine HCL 0.1 MG TABLET PO SCH (11:00)
[2018-08-21] MEDS ORDERED: hydrALAZINE 20 MG/ML VIAL IV ONE (11:58)
[2018-08-21] MEDS ORDERED: LORazepam 2 MG/ML VIAL IV ONE (13:00)
[2018-08-21] MEDS ORDERED: ENALAPRILAT 2.5 MG/2 ML VIAL IV ONE (13:33)
== END 2018-08-21 14:20 | disposition home or self-care (01) ==
LOC: ICU 08:10 → ED 08:10 → ICU 14:55
PROVIDERS: ADMIT Internal Medicine; ATTEND Internal Medicine